=== PATIENT | male | born 1945 | race Caucasian/White ===

== ENCOUNTER 2024-06-09 13:23 | Outpatient (CLI) | payer SELFPAY ==
--- OUTSIDE RECORDS SUMMARY | 2024-06-09 13:38 | XMS_ITS | Clinical Summary ---
Author Organization [facility] Address [place], [place] [address] Care Team Providers Care Gold Plater Name Role Phone Pcp, No Primary Care Provider Unavailabl e Allergies No known active allergies Medications Medication Sig Dispensed Refills Start Date End Date Status HYDROcodone-acetam inophen, 5-325 mg, (NORCO) per tabletIndications: Acute pain of right shoulder TAKE ONE TABLET BY MOUTH EVERY 6 HOURS IF NEEDED FOR PAIN MAX. ACETAMINOPHEN DOSE: 4000MG IN 24 HOURS 20 tablet 08/03/2016 Active tamsulosin (FLOMAX) 0.4 mg capsule Take 1 Capsule (0.4 mg) by mouth once daily after a meal. 02/24/2024 Active azelastine 137 mcg/actuation (ASTELIN) nasal sprayIndications:R hinitis, unspecified type Inhale 1 [place] into affected nostril(s) two times daily. 30 mL 2 02/24/2024 Active Active Problems No known active problems Family History Medical History Relation Name Comments Hyperlipidemia Brother 3 Arthritis Father , old a ge, age 89, knee problems Other Father Alzheimer's dis ease Heart Disease Mother congestive hea rt condition, open heart surgery 2003 Hypertension Mother Diabetes Sister 2 Type 2 Diabetes Unknown Sister 3 Relation Name Status Comments Brother 1 Alive Brother 2 Alive Brother 3 Father Mother Alive Sister 1 Alive Sister 2 Sister 3 Social History Tobacco Use Types Packs/Day Years Used Date Smoking Tobacco: Former Cigarettes Q uit: 07/08/1970 Tobacco Cessation:Counseling Given: Yes Alcohol Use Standard Drinks/Week Comments Yes 0 (1 standard drink = 0.6 oz pure alcohol) occas; split 1 bottle of wine every other night. Social Connections Answer Date Recorded Frequency of Communication with Friends and Fami ly Not on file 02/24/2024 Sex and Gender Information Value Date Recorded Sex Assigned at Not on file Gender Identity Not on file Sexual Orientation Not on file Obstetrics History Last Filed Vital Signs Vital Sign Reading Time Taken Comments Blood Pressure 145/77 02/24/2024 8:03 AM CDT Pulse 80 02/24/2024 8:03 AM CDT Temperature 36.7 C (98.1 F) 04/06/2009 9:12 AM CDT Respiratory Rate - - Oxygen Saturation 96% 02/24/2024 8:03 AM CDT Inhaled Oxygen Concentration - - Weight 93.4 kg (205 lb 12.8 oz) 02/24/2024 8:03 AM CDT Height - - Body Mass Index - - Plan of Treatment Health Maintenance Due Date Last Done Comments Tdap 09/09/1954 Depression screening for age 12+ 1955 BMI (ht and wt on same day) for age 18+ 09/09/1961 Tetanus booster 1963 Zoster (shingles) series for age 50+ (1 of 2) 09/09/18 94 Pneumococcal series for age 65+ (1 of 1 - PCV) 009 RSV vaccine for adults or pr egnancy (1 - 1-dose 75+ series) 09/09/2018 COVID-19 vaccine series ( - season) 4 Influenza for age 65+ 03/08/2024 Care Teams Gold Plater Relationship Specialty Start Date End Date Pcp, No . PCP - General 07/24/16
--- NOTE | 2024-06-09 13:45 | MR_ITS ---
[address] [address] Phone:?[phone] Fax:?[phone] Referring Physician Information: Jed Garibay M.D. [address] [facility] [address] Phone:?[phone] Fax:?[phone] Patient:Lyn Weaver D.O.B:?1945 Sex:?Male Phone:?[phone] [facility] MRN:?[id number] Exam Date:?06/09/2024 EXAM: MRI OF THE LEFT SHOULDER CLINICAL INFORMATION: The patient is an 78-year-old with left shoulder pain. Evaluate for rotator cuff tear. PRIOR SURGERY: None reported. COMPARISON STUDIES: Comparison is made to prior radiographs dated 06/02/2024. TECHNICAL INFORMATION: Using a 1.5T MR scanner and a localizing shoulder surface coil: 3.0 mm?coronal obliques: PD, T2, STIR 3.0 mm?sagittal obliques: PD, T2 3.0 mm?axials: PD, T2 FINDINGS: Articular/Extraarticular collections: Effusion: Mild to moderate. Subacromial/subdeltoid: Mild to moderate fluid is seen within the subacromial/subdeltoid bursa, in keeping with changes of bursitis. Subcoracoid: Mild to moderate fluid is seen within the subcoracoid bursa, in keeping with changes of bursitis. Osseous structures: Proximal humerus: Cortical irregularity, subcortical edema, and subcortical cystic change can be seen involving the greater and lesser tuberosity regions, in keeping with the rotator cuff pathology discussed below. There is no evidence for greater or lesser tuberosity fracture. No Hill-Sachs or reverse Hill-Sachs lesion is identified. Glenoid: Degenerative changes are seen along the articular surfaces of the glenoid as discussed below. No evidence for fracture or acute bony injury is identified. Acromioclavicular joint: Mild to moderate changes of acromioclavicular joint arthrosis are present and can be seen on sagittal series 8 image 13. Coracoacromial arch: Acromion morphology: Type II. No evidence for os acromiale. Acromiohumeral space: Markedly narrowed. Coracohumeral space: Moderately narrowed. Rotator cuff and deltoid: Supraspinatus: There is broad-based, full-thickness tearing and retraction of the supraspinatus tendon fibers seen on coronal series 5 image 13 and on sagittal series 9 image 7. The area of full-thickness tearing and retraction measures 43 mm in mediolateral dimension and 32 mm in anteroposterior dimension. Atrophic changes of the supraspinatus muscle belly are seen on sagittal series 9 image 29. Infraspinatus: Full-thickness tearing can be seen involving the distal infraspinatus tendon fibers on coronal series 5 image 16 and on sagittal series 9 image 6. The tearing measures 25 mm in mediolateral dimension and 19 mm in anteroposterior dimension. Atrophic changes of the infraspinatus muscle belly are seen on sagittal series 9 image 24. Teres minor: No evidence for tendinosis, tearing, or associated muscle belly atrophy. Subscapularis: Moderate subscapularis tendinosis can be seen with intrasubstance splitting and partial-thickness tearing. No definite full-thickness tearing or retraction is seen. No atrophic changes of the subscapularis muscle belly are noted. Deltoid: No evidence for strain or tearing. Biceps tendon: The intra-articular portion of the long head of the biceps tendon is not visualized. The biceps tendon is absent from the biceps sulcus. The findings are in keeping with an intra-articular rupture of the long head of the biceps tendon with subsequent retraction. Glenohumeral joint and labrum: Articular Cartilage: Full-thickness and near full-thickness chondral loss can be seen along the articular surfaces of the glenohumeral articulation. There is mild spurring along the articular margins with areas of subcortical cystic change and subcortical edema involving the central and superior aspects of the glenoid. The findings are in keeping with osteoarthritic change. Labrum: Degeneration, blunting, and irregularity of the glenoid labrum can be seen with poorly defined tearing of the superior portion. No paralabral ganglion cyst formation is identified. Capsular Soft Tissues: No definite capsular abnormalities of the glenohumeral joint are seen. No evidence for capsular tearing is present and there are no MR signs of adhesive capsulitis. CONCLUSION: 1. Broad-based, full-thickness tearing of the supraspinatus and infraspinatus tendons with retraction and associated muscle belly atrophy. 2. Subscapularis tendinosis with intrasubstance splitting and partial-thickness tearing. 3. Intra-articular rupture of the long head of the biceps tendon with subsequent retraction. 4. Mild to moderate acromioclavicular joint arthrosis with marked narrowing of the acromiohumeral space. 5. Osteoarthritic changes of the glenohumeral articulation. 6. Glenohumeral joint effusion with subacromial/subdeltoid and subcoracoid bursitis. AEC Electronically signed on 06/09/2024 3:27:00 PM by Frankie Barton M.D.
== END 2024-06-09 13:24 | disposition home or self-care (01) ==
PROVIDERS: Visit Provider Orthopaedic Surgery Sports Medicine
DX: M25.512 Pain in left shoulder (principal); M75.102 Unspecified rotator cuff tear or rupture of left shoulder, not specified as traumatic; M19.012 Primary osteoarthritis, left shoulder; M25.412 Effusion, left shoulder; M75.52 Bursitis of left shoulder; M12.812 Other specific arthropathies, not elsewhere classified, left shoulder
CPT/HCPCS: 73221

== ENCOUNTER 2024-06-23 08:45 | Outpatient (CLI) | payer SELFPAY | END 2024-06-23 08:46 | disposition home or self-care (01) | LOC: CT 08:46 | PROVIDERS: PCP Family Medicine; Visit Provider Orthopaedic Surgery Sports Medicine | DX: M19.112 Post-traumatic osteoarthritis, left shoulder (principal); Z01.818 Encounter for other preprocedural examination | CPT/HCPCS: 73200 ==

== ENCOUNTER 2024-07-22 09:10 | Outpatient (RCR) | payer SELFPAY | END 2024-11-19 23:59 | disposition home or self-care (01) | PROVIDERS: PCP Family Medicine; Visit Provider Orthopaedic Surgery Sports Medicine | DX: M19.112 Post-traumatic osteoarthritis, left shoulder (principal); Z96.612 Presence of left artificial shoulder joint; Z51.89 Encounter for other specified aftercare | CPT/HCPCS: 97165; 97535 ==

== ENCOUNTER 2024-07-29 06:59 | Day surgery (SDC) | payer OTHER, SELFPAY ==
[2024-07-29] VITALS (20 sets, daily range): BP systolic 105–157; BP diastolic 55–78; PULSE 60–91; RESP 14–16; TEMP 36.1–36.2; O2SAT 90–98; BMI 27.5
[2024-07-29] MEDS: LACTATED RINGERS 1000 ML 1,000 ML 100 ML IV (07:15)
[2024-07-29] MEDS: ACETAMINOPHEN 500 MG TABLET 1000 MG PO (07:15)
[2024-07-29] MEDS: SODIUM CHLORIDE 0.9 % (FLUSH) 10 ML SYRINGE IVF (07:15)
[2024-07-29] MEDS: OXYCODONE (CR) 10 MG TAB.ER.12H PO (07:15)
--- NOTE | 2024-07-29 07:25 | W.PM.H&PU ---
History & Physical Update History & Physical Update H&P Reviewed and patient assessed: No changes noted
[2024-07-29] MEDS: fentaNYL 100 MCG/2 ML inj IVP (08:14)
[2024-07-29] MEDS: MIDAZOLAM HCL 1 MG/ML inj IVP (08:14)
--- NOTE | 2024-07-29 08:23 | SUR.PREOP ---
TIME?OUT:?12 PT/RN/MDA?VERIFICATION?OF?SURGICAL?SITE,?PROCEDURE,?AND?CONSENT OBTAINED?PRIOR?TO?INVASIVE?PROCEDURE.
--- NOTE | 2024-07-29 08:32 | P.ANES_ITS ---
Anesthesia Charges Start Date/Time Anesthesia Start Date: 07/29/24 Anesthesia Start Time: 08:32 Stop Date/Time Anesthesia Stop Date: 07/29/24 Anesthesia Stop Time: 10:34 Summary Extremes of Age - Over 70 or under 1: MDA Coding CPT Codes CPT Codes: ANESTH SHOULDER REPLACEMENT - 70398 ([id number]) P2 - PATIENT W/MILD SYST DISEASE, QK - RAILWAY HEAD TENDER 2-4 CNCRNT ANES PROC, QX - CLINICAL SAFETY MANAGER SVC W/ MD MED DIRECTION Additional Codes: Summary - Extremes of Age - Over 70 or under 1: MDA ([id number])
--- NOTE | 2024-07-29 08:32 | W.PM.NB ---
Nerve Block Nerve Block Time Seen by Provider: 08:15 Date Seen: 07/29/24 Type of block requested by surgeon for post-operative analgesia: supraclavicular Side: left Time out performed: Yes Verification of patient name: Yes Verification of date of : Yes Site marking: site marked Name of person performing procedure: Enoc Continuous monitoring Was continuous monitoring of O2 sat, B/P, seamless tube drawer, recorded every 15 minutes?: Yes Procedure Checklist: sterile prep, needles and gloves Ultrasound guided. Images saved: Yes Medications given in 5ml increments after negative aspiration: Ropivicaine %: 0.5 mL: 15 Needle gauge: 22 Precedex (mcg): 25 Patient tolerated procedure well: Yes Block Charges Block Charge (with Pro Fee): Brachial Plexus Use of Ultrasound Machine for Block: Yes- US Guidance/pain block
--- NOTE | 2024-07-29 08:32 | W.ANESCHARGE ---
Anesthesia Charges Start Date/Time Anesthesia Start Date: 07/29/24 Anesthesia Start Time: 08:32 Stop Date/Time Anesthesia Stop Date: 07/29/24 Anesthesia Stop Time: 10:34 Summary Extremes of Age - Over 70 or under 1: MDA Coding CPT Codes CPT Codes: ANESTH SHOULDER REPLACEMENT - 76779 ([id number]) P2 - PATIENT W/MILD SYST DISEASE, QK - CAR RUNNER 2-4 CNCRNT ANES PROC, QX - DATABASE SECURITY EXPERT SVC W/ MD MED DIRECTION Additional Codes: Summary - Extremes of Age - Over 70 or under 1: MDA ([id number])
[2024-07-29] MEDS: CEFAZOLIN 2 GM in 0.9 % SODIUM CHLORIDE Mini-bag 100 ML IVPB (08:46)
[2024-07-29] MEDS: TRANEXAMIC ACID 100 MG/ML INJ 1000 MG IV (08:52)
--- NOTE | 2024-07-29 09:04 | CRLHL7_ITS ---
For Patients: As a result of the Century Cures Act, medical imaging exams and procedure reports are released immediately into your electronic medical record. You may view this report before your referring provider. If you have questions, please contact your health care provider. INDICATION: Total shoulder replacement. TECHNIQUE: Three views of the left shoulder. FINDINGS: New reverse left total shoulder arthroplasty. Oblique lucencies project over the proximal left humeral shaft are suspicious for a nondisplaced spiral fracture. Alternatively this could be artifact due to overlying structures. Dictated by Jaden Moulton MD @ 07/29/2024 1:52:43 PM (Electronically Signed)
--- NOTE | 2024-07-29 09:10 | SUR.OPER ---
PATIENT QUESTIONS ANSWERED SATISFACTORILY PREOPERATIVELY. PATIENT BROUGHT TO OR #3 PER CART FOLLOWING THE BLOCK. Patient positioned supine on OR #3 bed for the intubation.? Perioperative team wrapped the right arm in a neutral position on the pt. abdomen with the drawsheet. Left arm elevated on an IV pole in a padded strap. Final approval of positioning by surgeon.
--- NOTE | 2024-07-29 10:15 | PM.ORPRC ---
Procedure Note Date of procedure: 07/29/24 Procedure: PREOPERATIVE DIAGNOSIS: 1. Left shoulder irrepairable rotator cuff tear 2. Left long head of the biceps tendinopathy and tenosynovitis POSTOPERATIVE DIAGNOSIS: 1. Left shoulder irrepairable rotator cuff tear 2. Left long head of the biceps tendinopathy and tenosynovitis PROCEDURE: 1. Left reverse shoulder arthroplasty. 2. Left long head of biceps open tenodesis SURGEON: Jed Garibay MD. SURGICAL SUPPLY ASSISTANT: Aroldo MORAN - Of note, a skilled assistant center director was critical for this case to aid in patient positioning, tissue retraction, limb manipulation/positioning, retraction for glenoid exposure, which was challenging, awareness and protection of critical structures, and closure. ANESTHESIA: General plus supraclavicular block EBL: 200 ml IMPLANTS: DJ0 surgical Altivate humeral stem size 12 standard shell, short with P2 porous coating vitamin E neutral poly small socket insert RSP glenoid base plate P2 porous coating with 4 perimeter locking screws 32 neutral glenosphere with retaining screw COMPLICATIONS: None evident INDICATIONS: The patient is a pleasant 78-year-old male who has experienced severe left shoulder pain and difficulty with use. Workup included imaging which revealed severe osteoarthrosis along with concern for rotator cuff quality. Physical exam was consistent with associated pain. Given the deformity, the dysfunction, and the pain, and failure of nonoperative management, recommendation was made for surgery. DESCRIPTION OF PROCEDURE: Following a thorough discussion of risks, benefits, and alternatives, consent was obtained and the left shoulder was marked. The patient was brought to the operating room and placed supine on the operating table. Induction of anesthesia was undertaken. 2 g IV Ancef and 1 g tranexamic acid was administered within 1 hr of incision preoperatively. Appropriate time-out was performed identifying proper patient, site, and procedure. The operative extremity was prepped and draped in the appropriate sterile fashion using ChloraPrep after the patient was positioned in the lazy beach chair position with head in neutral alignment and all bony prominences well padded. A longitudinal incision was made for deltopectoral approach. Deltoid was retracted laterally. Cephalic vein was identified and retracted laterally as well. Vein was spared/protected throughout the case. The clavipectoral fascia was identified and divided longitudinally staying lateral to the conjoined tendon / coracoid. The conjoined tendon was protected with a blunt Hohmann. The long head of the biceps tendon was identified and the bicipital sheath released. The upper 1/4 of the pectoralis major was also released from its insertion. The long head of the biceps was tenodesed to the pectoralis major tendon. The remaining proximal tendon tissue was excised. The rotator cuff was inspected and found to have good integrity with the subscapularis but fair integrity with a supraspinatus], and a decision for a reverse shoulder arthroplasty was confirmed. The long head of biceps, of note, was significant flattened, thickened, with abundant tenosynovitis. A subscapularis cuff of tissue was left via tenotomy for later repair with the remaining subscapularis released in a subperiosteal fashion with the Bovie. This was tagged for later repair. The 3 sisters were cauterized. The upper subscapularis was released from the capsule with a curved Barrios scissors towards the glenoid. The inferior subscapularis was divided from the capsular tissue on its caudal surface with particular caution for the axillary nerve. This was palpated anterior to the subscapularis both prior to and near the finish of the case. Inferior humeral head osteophytes were excised with caution taken throughout the case with regards to the axillary nerve. The humerus was dislocated, and humeral head cut completed. Then a protector plate was applied. We turned our attention to the glenoid. The humerus was retracted posteriorly. The subscap was protected anteriorly and the labrum/long head biceps origin was excised circumferentially. The capsule was released along the anterior and inferior portions of the glenoid cautiously with a Perez elevator being careful not to penetrate deep. The glenoid had appropriate exposure, and was prepared with the cannulated system with a target of approximately 5-10? of inferior tilt and neutral anteversion (patient had 10? of retroversion initially). Utilizing the match Point 3D printed guide, the guide pin was placed. The 3D printed jig removed and after placing the guide pin, the tap was placed followed by the glenoid reaming. The real base plate was opened, and inserted, and excellent compression/purchase was achieved with the central screw. Peripheral screws were then drilled, measured, and placed. The glenosphere was then placed consistent with the preoperative plan utilizing the above noted glenosphere. After securing the glenosphere with the locking, torque limited screw, attention was turned back to the humerus. A canal finder was placed followed by various reamers by hand. The real humeral stem was then opened and inserted with excellent metaphyseal fit and stability. Trial poly was placed and the shoulder reduced. Excellent reduction and stability achieved with appropriate tension on the conjoined tendon. At this stage, trial implants were removed, and the real implants inserted and the shoulder reduced. A 3 minute Betadine soak was performed followed by a thorough irrigation with normal saline. Subscapularis was repaired with #1 PDS to the cuff of tissue on the lesser tuberosity. Excellent reapproximation of tissue achieved. Hemostasis was found to be appropriate. The deltopectoral interval was reapproximated with 0 Vicryl, subcutaneous and subcuticular closure was then performed with number 2-0 Vicryl and 4-0 Monocryl, respectively. A skilled assistant center director was critical for this case to aid in patient positioning, tissue retraction, limb manipulation/positioning, retraction for glenoid exposure, which was challenging, awareness and protection of critical structures, and closure. PLAN: 1. Sling at all times for the operative upper extremity. 2. AROM of elbow, forearm, wrist, and digits as tolerated. 3. PT/OT consults for education and assistance. 4. Social consult for discharge planning. 5. 23 hr perioperative antibiotics. 6. Early ambulation, and SCDs for DVT prophylaxis. 7. Admit to the hospital for the above 8. Analgesics p.r.n.
--- NOTE | 2024-07-29 10:34 | P.ANES_ITS ---
Anesthesia Charges Start Date/Time Anesthesia Start Date: 07/29/24 Anesthesia Start Time: 08:32 Stop Date/Time Anesthesia Stop Date: 07/29/24 Anesthesia Stop Time: 10:34 Summary Extremes of Age - Over 70 or under 1: INSTRUMENT REPAIR TECHNICIAN Coding CPT Codes CPT Codes: ANESTH SHOULDER REPLACEMENT - 72937 ([id number]) P2 - PATIENT W/MILD SYST DISEASE, QK - ACROBATIC DANCER 2-4 CNCRNT ANES PROC, QX - INSTRUMENT REPAIR TECHNICIAN SVC W/ MD MED DIRECTION Additional Codes: Summary - Extremes of Age - Over 70 or under 1: INSTRUMENT REPAIR TECHNICIAN ([id number])
--- NOTE | 2024-07-29 10:34 | W.ANESCHARGE ---
Anesthesia Charges Start Date/Time Anesthesia Start Date: 07/29/24 Anesthesia Start Time: 08:32 Stop Date/Time Anesthesia Stop Date: 07/29/24 Anesthesia Stop Time: 10:34 Summary Extremes of Age - Over 70 or under 1: CLINICAL RESEARCHER Coding CPT Codes CPT Codes: ANESTH SHOULDER REPLACEMENT - 97509 ([id number]) P2 - PATIENT W/MILD SYST DISEASE, QK - ASSISTANT FACILITY MANAGER 2-4 CNCRNT ANES PROC, QX - CLINICAL RESEARCHER SVC W/ MD MED DIRECTION Additional Codes: Summary - Extremes of Age - Over 70 or under 1: CLINICAL RESEARCHER ([id number])
[2024-07-29] MEDS: LACTATED RINGERS 500 ML 500 ML 100 ML IV (11:30)
--- NOTE | 2024-07-29 14:41 | SUR.PHASEII ---
Patient ambulated to bathroom to void, patient stated he felt good up and walking. OT here @ 1444.
== END 2024-07-29 15:15 | disposition home or self-care (01) ==
LOC: OR 07:00
PROVIDERS: PCP Family Medicine; Visit Provider Orthopaedic Surgery Sports Medicine
PROC: 0RRJ0JZ Replacement of Right Shoulder Joint with Synthetic Substitute, Open Approach (ICD-10-PCS; CPT 23472; principal; 2024-07-29 08:45)
DX: M75.102 Unspecified rotator cuff tear or rupture of left shoulder, not specified as traumatic (principal); M75.22 Bicipital tendinitis, left shoulder; G89.18 Other acute postprocedural pain
CPT/HCPCS: 23472; 23430; 01638; 64415; 73030; 76942; 97110; 97165; 97535; 99100; A9270; C1713; C1776; J0330; J0690; J1100; J2250; J2371; J2405; J2704; J2710; J2795; J3010; J7120; L3670

== ENCOUNTER 2025-03-24 09:53 | Day surgery (SDC) | payer MEDICARE, OTHER, SELFPAY ==
[2025-03-24] VITALS (20 sets, daily range): BP systolic 97–162; BP diastolic 58–89; PULSE 61–83; RESP 14–20; TEMP 35.9–37; O2SAT 90–97; BMI 26.3
--- NOTE | 2025-03-24 10:09 | W.PM.H&PU ---
History & Physical Update History & Physical Update H&P Reviewed and patient assessed: No changes noted
[2025-03-24] MEDS: LACTATED RINGERS 1000 ML 1,000 ML 100 ML IV ×2 (10:30→12:22)
[2025-03-24] MEDS: SODIUM CHLORIDE 0.9 % (FLUSH) 10 ML SYRINGE IVF (10:30)
[2025-03-24] MEDS: ACETAMINOPHEN 500 MG TABLET 1000 MG PO ×3 (10:40→20:48)
[2025-03-24] MEDS: OXYCODONE (CR) 10 MG TAB.ER.12H PO (10:40)
[2025-03-24] MEDS: MIDAZOLAM HCL 1 MG/ML inj IVP (10:45)
--- NOTE | 2025-03-24 10:54 | CRLHL7_ITS ---
For Patients: As a result of the Cures Act, medical imaging exams and procedure reports are released immediately into your electronic medical record. You may view this report before your referring provider. If you have questions, please contact your health care provider. Indication: Hip replacement surgery Technique: AP hip fluoroscopic image. Fluoroscopy time 50.4 seconds. Findings/Impression: Hardware from a right total hip arthroplasty is in satisfactory position. Dictated by Chavo Londono MD @ 03/24/2025 2:39:13 PM (Electronically Signed)
--- NOTE | 2025-03-24 10:59 | SUR.PREOP ---
TIME?OUT:?right hip 1042 PT/RN/MDA?VERIFICATION?OF?SURGICAL?SITE,?PROCEDURE,?AND?CONSENT OBTAINED?PRIOR?TO?INVASIVE?PROCEDURE.
[2025-03-24] MEDS: TRANEXAMIC ACID 100 MG/ML INJ 1000 MG IV (11:20)
--- NOTE | 2025-03-24 11:22 | W.PM.NB ---
Nerve Block Nerve Block Time Seen by Provider: 10:45 Date Seen: 03/24/25 Type of block requested by surgeon for post-operative analgesia: BAYLEE/LFCN Side: right Time out performed: Yes Verification of patient name: Yes Verification of date of : Yes Site marking: site marked Name of person performing procedure: Enoc Continuous monitoring Was continuous monitoring of O2 sat, B/P, secured entrance monitor, recorded every 15 minutes?: Yes Procedure Checklist: sterile prep, needles and gloves Ultrasound guided. Images saved: Yes Medications given in 5ml increments after negative aspiration: Ropivicaine %: 0.5 mL: 30 Needle gauge: 20 Precedex (mcg): 25 Patient tolerated procedure well: Yes Additional comments: Needle noted below psoas tendon needle noted adjacent to LFCN Block Charges Block Charge (with Pro Fee): Other Periph Nerve Block Use of Ultrasound Machine for Block: Yes- US Guidance/pain block
--- NOTE | 2025-03-24 11:23 | P.ANES_ITS ---
Anesthesia Charges Start Date/Time Anesthesia Start Date: 03/24/25 Anesthesia Start Time: 10:59 Stop Date/Time Anesthesia Stop Date: 03/24/25 Anesthesia Stop Time: 13:34 Summary Extremes of Age - Over 70 or under 1: MDA Coding CPT Codes CPT Codes: ANESTH HIP ARTHROPLASTY - 27166 ([id number]) P2 - PATIENT W/MILD SYST DISEASE, QK - PIPE WASHER 2-4 CNCRNT ANES PROC, QX - X RAY OPERATOR SVC W/ MD MED DIRECTION Additional Codes: Summary - Extremes of Age - Over 70 or under 1: MDA ([id number])
--- NOTE | 2025-03-24 11:23 | W.ANESCHARGE ---
Anesthesia Charges Start Date/Time Anesthesia Start Date: 03/24/25 Anesthesia Start Time: 10:59 Stop Date/Time Anesthesia Stop Date: 03/24/25 Anesthesia Stop Time: 13:34 Summary Extremes of Age - Over 70 or under 1: MDA Coding CPT Codes CPT Codes: ANESTH HIP ARTHROPLASTY - 91580 ([id number]) P2 - PATIENT W/MILD SYST DISEASE, QK - EPIC PRELUDE ANALYST 2-4 CNCRNT ANES PROC, QX - LEVELER HELPER SVC W/ MD MED DIRECTION Additional Codes: Summary - Extremes of Age - Over 70 or under 1: MDA ([id number])
--- NOTE | 2025-03-24 13:32 | CRLHL7_ITS ---
For Patients: As a result of the Cures Act, medical imaging exams and procedure reports are released immediately into your electronic medical record. You may view this report before your referring provider. If you have questions, please contact your health care provider. Indication: s/p Total hip arthroplasty Technique: AP hip centered pelvis and lateral view right hip Findings/Impression: Hardware from a right total hip arthroplasty is in satisfactory position. Bone alignment is normal. No sign of acute fracture. Postop changes are within normal limits. Dictated by Chavo Londono MD @ 03/24/2025 2:40:03 PM (Electronically Signed)
--- NOTE | 2025-03-24 13:34 | P.ANES_ITS ---
Anesthesia Charges Start Date/Time Anesthesia Start Date: 03/24/25 Anesthesia Start Time: 10:59 Stop Date/Time Anesthesia Stop Date: 03/24/25 Anesthesia Stop Time: 13:34 Summary Extremes of Age - Over 70 or under 1: RETAIL SALES ASSOCIATE BILINGUAL Coding CPT Codes CPT Codes: ANESTH HIP ARTHROPLASTY - 03000 ([id number]) P3 - PATIENT W/SEVERE SYS DISEASE, QK - HEMSTITCHING MACHINE OPERATOR 2-4 CNCRNT ANES PROC, QX - RETAIL SALES ASSOCIATE BILINGUAL SVC W/ MD MED DIRECTION Additional Codes: Summary - Extremes of Age - Over 70 or under 1: RETAIL SALES ASSOCIATE BILINGUAL ([id number])
--- NOTE | 2025-03-24 13:34 | W.ANESCHARGE ---
Anesthesia Charges Start Date/Time Anesthesia Start Date: 03/24/25 Anesthesia Start Time: 10:59 Stop Date/Time Anesthesia Stop Date: 03/24/25 Anesthesia Stop Time: 13:34 Summary Extremes of Age - Over 70 or under 1: SWATCH CUTTER Coding CPT Codes CPT Codes: ANESTH HIP ARTHROPLASTY - 76449 ([id number]) P3 - PATIENT W/SEVERE SYS DISEASE, QK - SOFTWARE APPLICATIONS ARCHITECT 2-4 CNCRNT ANES PROC, QX - SWATCH CUTTER SVC W/ MD MED DIRECTION Additional Codes: Summary - Extremes of Age - Over 70 or under 1: SWATCH CUTTER ([id number])
--- NOTE | 2025-03-24 13:53 | SUR.PHASEI ---
left elbow noted in operating room to be red after procedure. Travis GRIFFITH aware, no interventions needed and will continue to monitor.
[2025-03-24] MEDS: LACTATED RINGERS 1000 ML 1,000 ML 75 ML IV (14:19)
--- NOTE | 2025-03-24 16:09 | PM.IMCN1 ---
Date of Consult Patient: [facility] Patient Consult date: 03/24/25 Requesting Physician: Orthopedics Primary Care Provider: Fitz Jordan MD Consult Narrative Reason for consult: Medical management Narrative: Pepito Weaver is a 79 year old male past medical history significant for osteoarthritis, lumbar degenerative disc disease, GERD, BPH is POD#0 s/p right total hip arthroplasty, Dr. Rodriguez. Postoperatively, patient reports pain is currently adequately managed. Denies headache or dizziness. Denies chest pain or shortness of breath. Tolerating orals without nausea vomiting. There have been no perioperative complications or nursing concerns reported. Estimated total blood loss documented as 300 ml. Updated and reviewed the active medical problems, past medical history, past surgical history, social history, allergies and medications in our electronic EMR. Review of Systems Narrative: REVIEW OF SYSTEMS: Complete review of systems performed and negative unless otherwise stated in HPI or below. 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) ?Z96.612 - Presence of left artificial shoulder joint (ICD-10) History of arthroscopy of right shoulder (08/08/16) ?Z98.890 - Other specified postprocedural states (ICD-10) History of tonsillectomy (~1950) ?Z90.89 - Acquired absence of other organs (ICD-10) Status post ORIF of fracture of ankle (1985) ?Z98.890 - Other specified postprocedural states (ICD-10) ?Z87.81 - Personal history of (healed) traumatic fracture (ICD-10) Status post ORIF of fracture of ankle (1990) ?Z98.890 - Other specified postprocedural states (ICD-10) ?Z87.81 - Personal history of (healed) traumatic fracture (ICD-10) Family History Mother Heart disease High blood pressure Sister Diabetes Brother High cholesterol Father Alzheimers disease Social History Narrative: former smoker-Quit 1971 -Malena What is your current living situation?: I presently have a place to live Problems where you live: no known problems In the past 12 months, utilities in danger of being shut off: no In past 12 months, lack of transportation kept you from medical appts, meetings, work, or getting things needed for daily living: no In the past 12 mos, have been you worried that your food would run out before you had money to buy more?: never true In the past 12 mos, the food you bought just didn't last and you didn't have money to buy more?: never true Smoking Status: Former smoker What tobacco products do you use: cigarettes Smoking quit date/years: >15 years ago Do you use any of these nicotine containing products: None Second hand tobacco smoke exposure: No How often do you have a drink containing alcohol: 4 or more times a week Alcohol type: wine How many standard drinks containing alcohol do you have on a typical day: 1 or 2 How often do you have six or more drinks on one occasion: Never AUDIT-C Alcohol total score: 4 Non-prescribed substance use: denies use Caffeine: Yes How often does anyone, including family, friends and others, physically hurt you: never How often does anyone, including family, friends and others, insult or talk down to you: rarely How often does anyone, including family, friends and others, threaten you with harm: never How often does anyone, including family, friends and others, scream or curse at you: never Health Related Social Needs: Other personal risk factors, not elsewhere classified (Z91.89) Meds Home Medications and Allergies Home Medications ?Medication ?Instructions ?Recorded ?Confirmed ?Type multivitamin 1 tab PO QAM 06/02/24 03/24/25 History Lions Made 1 tab PO QDAY 03/18/25 03/24/25 History loratadine 10 mg tablet 10 mg PO QDAY 03/18/25 03/24/25 History tamsulosin 0.4 mg capsule 0.8 mg (2 x 0.4 mg) PO QDAY #180 03/18/25 03/24/25 Rx caps acetaminophen 500 mg capsule 500 - 1,000 mg (1 - 2 x 500 mg) PO 03/24/25 Rx Q6H PRN #100 caps aspirin 81 mg tablet,delayed 81 mg PO BID #50 tabs 03/24/25 Rx release oxycodone 5 mg tablet 2.5 - 5 mg (0.5 - 1 x 5 mg) PO 03/24/25 Rx Q4-6H PRN pain #42 tabs rivaroxaban 10 mg tablet 10 mg PO DAILY #4 tabs 03/24/25 Rx sennosides 8.6 mg-docusate sodium 1 - 4 tab-cap (1 - 4 x 8.6-50 mg) 03/24/25 Rx 50 mg tablet (Senna-S) PO BID PRN constipation #60 tabs Allergies Allergy/AdvReac Type Severity Reaction Status Date / Time No Known Drug Allergies Allergy Verified 03/24/25 10:01 Exam Narrative: Exam Narrative: PHYSICAL EXAM General: Pleasant, conversant, NAD HEENT: Normocephalic, atraumatic, sclera white, EOMI, oral mucosa moist Cardiovascular: RRR, S1S2. No pitting edema Pulmonary: CTA bilaterally without rhonchi, rales, expiratory wheezes. No dyspnea Neurological: Alert, answering questions appropriately, cranial nerves intact, no focal findings Extremities: No gross joint deformity or swelling. Postoperative dressing in place, dry. Neurovascularly intact Skin: Warm, dry. Const: Vital Signs, click to edit/add: Vital Signs - 24 hr 03/24/25 10:20 03/24/25 10:45 03/24/25 10:50 Temperature 98.6 F Pulse Rate 71 64 63 Pulse Rate [Right Pulse Oximeter] Respiratory Rate 20 16 16 Blood Pressure 142/72 H 159/79 H 162/69 H Blood Pressure [Le ft Arm] Pulse Oximetry 96 97 95 Oxygen Delivery Me thod Room Air Nasal Cannula Nasal Cannula Oxygen Flow Rate 3 3 Fraction of Inspir ed Oxygen 03/24/25 10:55 03/24/25 13:30 03/24/25 13:35 Temperature 97.0 F L Pulse Rate 63 64 66 Pulse Rate [Right Pulse Oximeter] Respiratory Rate 16 14 14 Blood Pressure 133/75 108/89 97/58 L Blood Pressure [Le ft Arm] Pulse Oximetry 96 95 94 Oxygen Delivery Me thod Nasal Cannula Nasal Cannula Nasal Cannula Oxygen Flow Rate 3 2 2 Fraction of Inspir ed Oxygen 100 100 03/24/25 13:40 03/24/25 13:45 03/24/25 13:50 Temperature Pulse Rate 64 64 66 Pulse Rate [Right Pulse Oximeter] Respiratory Rate 16 16 16 Blood Pressure 108/59 L 103/59 L 103/59 L Blood Pressure [Le ft Arm] Pulse Oximetry 94 92 94 Oxygen Delivery Me thod Nasal Cannula Room Air Room Air Oxygen Flow Rate 2 Fraction of Inspir ed Oxygen 100 03/24/25 13:55 03/24/25 14:15 03/24/25 14:30 Temperature 97.3 F L 96.7 F L 97.0 F L Pulse Rate 66 Pulse Rate [Right Pulse Oximeter] 65 62 Respiratory Rate 16 14 16 Blood Pressure 108/62 Blood Pressure [Le ft Arm] 110/58 L 114/62 Pulse Oximetry 95 90 95 Oxygen Delivery Me thod Room Air Room Air Room Air Oxygen Flow Rate Fraction of Inspir ed Oxygen 03/24/25 14:45 03/24/25 15:00 Temperature 97.0 F L Pulse Rate Pulse Rate [Right Pulse Oximeter] 63 Respiratory Rate 16 Blood Pressure Blood Pressure [Le ft Arm] 126/70 121/70 Pulse Oximetry 97 Oxygen Delivery Me thod Room Air Oxygen Flow Rate Fraction of Inspir ed Oxygen Assessment and Plan Assessment and plan (1) Osteoarthritis of right hip: Problem comment: -POD#0 s/p R CLARY, Dr. Rodriguez -perioperative management including pain management and anticoagulation per Orthopedic surgery -encourage postoperative pulmonary hygiene -PT OT consults -plan to discharge home with spouse tomorrow -hgb in am. Vitally stable Status: Acute Plan May resume home medications upon discharge. Hospital medicine team will sign off. Please contact our service with any questions or concerns. Total Time Spent Total Time Spent: Today I spent 55 minutes seeing the patient, reviewing Expanse and EPIC notes/diagnostics, discussing the care plan with our care time that includes social work, PT/OT, pharmacy, RT, fpc and documenting my impressions and plan in the medical record.
[2025-03-24] MEDS: CEFAZOLIN 2 GM in 0.9 % SODIUM CHLORIDE Mini-bag 100 ML IVPB (17:39)
--- NOTE | 2025-03-24 18:50 | PC.NURSE ---
Pt is doing very well. Pleasant to care for. VSS. Pain is minimal and controlled well with tylenol and ice. Pt ambulated to the bathroom and his recliner chair, sat in chair throughout the evening, tolerating well. Voiding well Tolerating oral intake. Surgical dressing remains clean, dry and intact.
[2025-03-24] MEDS: SENNOSIDES 1 TAB TABLET 2 TAB PO (20:47)
[2025-03-25] MEDS: CEFAZOLIN 2 GM in 0.9 % SODIUM CHLORIDE Mini-bag 100 ML IVPB (01:40)
[2025-03-25] MEDS: SODIUM CHLORIDE 0.9 % (FLUSH) 10 ML SYRINGE IVF (01:40)
[2025-03-25] MEDS: ACETAMINOPHEN 500 MG TABLET 1000 MG PO (01:41)
[2025-03-25 01:48] VITALS: BP 164/84; PULSE 91; RESP 18; TEMP 36.6; O2SAT 98
--- NOTE | 2025-03-25 06:41 | PC.NURSE ---
Shift note: Patient is doing well ambulating with A1, walker and GB. Tolerated regular diet well. Pain has been minimal until this morning where patient rated pain at 9.This was just after visited BR. Oxycodone 10mg given and was effective. Vitally stable. Dressing intact, clean and dry.
[2025-03-25 06:51] LABS: Hemoglobin* 13.2 gm/dL (13.5-17.5)
[2025-03-25 07:00] VITALS: BP 139/74; PULSE 104; RESP 16; TEMP 37.2; O2SAT 95
--- NOTE | 2025-03-25 08:19 | P.ORPRC_ITS ---
Procedure Note Date of procedure: 03/24/25 Procedure: PREOPERATIVE DIAGNOSIS: 1. Right hip osteoarthritis, severe, primary POSTOPERATIVE DIAGNOSIS: 1. Right hip osteoarthritis, severe, primary PROCEDURE: 1. Right total hip arthroplasty-anterior approach 2. Intraoperative fluoroscopy and interpreted by Jed Garibay M.D. for intraoperative evaluation of femoral neck cut location, implant positioning, leg length and offset evaluation/comparison to contralateral side. Fluoroscopy time was 50.4 seconds. SURGEON: Jed Garibay MD. COMMUNICATIONS LEAD: Travis Guerra PA-C; Lucia Costa PA-C - Of note, a skilled physician assistant surgery was critical for this case to aid in patient positioning, tissue retraction, limb manipulation/positioning, and closure. ANESTHESIA: Spinal anesthetic EBL: 300ml IMPLANTS: DePuy J&J uncemented total hip [place] cup size 56, hole eliminator, +4 neutral liner Actis stem, high offset, size 6 +1.5 mm ceramic 36 mm head COMPLICATIONS: None evident INDICATIONS: The patient is a pleasant 79-year-old male who has experienced severe right hip pain and difficulty bearing weight. Workup included x-rays which revealed severe osteoarthrosis in the hip. Given the deformity, the dysfunction, and the pain, as well as the failure of nonoperative management, recommendation was made for surgery. FINDINGS: Full-thickness chondral loss diffusely throughout the femoral head and acetabulum. Osteophytes on the femoral head/neck junction and acetabular perimeter. Moderate effusion upon entering joint. DESCRIPTION OF PROCEDURE: Following a thorough discussion of risks, benefits, and alternatives consent was obtained and the right hip was marked. The patient was brought to the operating room and placed supine on the operating table. Induction of anesthesia was undertaken. 2 g IV Ancef and 1 g tranexamic acid was administered within 1 hr of incision preoperatively. Proper time-out was performed identifying proper patient, site, procedure. The operative extremity was prepped and draped in the appropriate sterile fashion using ChloraPrep after the patient was positioned on the [place] table with head in neutral alignment and all bony prominences well padded. C-arm fluoroscopic imaging was utilized to confirm proper pelvis rotation and position, and to get true AP films of both the contralateral left, and the affected right hip. This is for comparison. A longitudinal incision was made starting approximately 1 cm distal to the ASIS, and 2-3 cm lateral. The incision was extended distally aiming toward the fibular head. Sharp incision through skin and bovie cautery through the subcutaneous tissue allowed identification of the TFL fascia. This was sharply divided, and the fascia bluntly released from the muscle fibers as we dissected medial. Upon coming to the medial border, we were able to retract the TFL laterally, and penetrated the deeper fascia and identify the crossing circumflex vessels. These were ligated/cauterized. The rectus was elevated from the capsule, and retractors placed laterally and medially along the femoral neck to help with visualization of the capsule. We then performed an inverted T capsulotomy. The capsule was tagged for later repair. Retractors were placed inside the capsule. The femoral neck was visualized after releasing medially down to the lesser trochanter, along the saddle laterally, and up onto the acetabulum. The femoral neck cut was made in line with our preoperative templating. The head was removed in a single piece, and sized. We turned our attention to acetabular preparation. Initially, the labrum was resected from around the perimeter, the pulvinar was excised, allowing us to visualize the false wall. We started the reaming with a 43 mm reamer. This was medialized down to the true wall. We then enlarged our reamers sequentially up to one size less than the selected cup size. We trialed at the same size and found it to have an excellent fit. The selected cup was then opened, inserted, and impacted in line with the goal of 40? of abduction, and 20-25? of anteversion. This was confirmed on C-arm fluoroscopic imaging to be in the appropriate/goal position. Once the cup was placed we placed a hole eliminator and a liner consistent with preop planning. Attention was turned to the femoral preparation. The limb was extended, externally rotated, and adducted. The posteromedial capsule was released, as retractors were placed allowing excellent access to the proximal femur. Initially a wire bound box machine operator was followed by canal finder followed by various broaches. We broached sequentially up to the size noted above, found it to have excellent rotational control, and trialing various heads and necks, revealed that appropriate neck offset, and the above noted head size provided the greatest stability, and anabaptist of length, and offset. C-arm fluoroscopic imaging confirmed position of the stem, as well as leg lengths, which were compared with the pre procedure all fluoroscopic images. Trial implants were removed, the real femoral stem inserted, as was the appropriate head. After reducing, the leg was placed through range of motion and stability was confirmed anterior, posterior, and lateral. A 3 min Betadine soak was then performed, and thorough irrigation with normal saline followed. Closure of the capsule was performed with #1 PDS. Bleeding was confirmed to be controlled at this stage, and the TFL fascia was closed with #0 strata fix. Subcutaneous, and subcuticular closure was performed with 2-0 Stratafix and 4-0 Stratafix, respectively. Dressings were applied, and the patient was awoken from anesthesia and transferred the PACU in stable condition. A skilled physician assistant surgery was critical for this case to aid in patient positioning, tissue retraction, acetabular and proximal femoral exposure, limb manipulation/positioning, dislocation/relocation, patient safety, and closure. PLAN: 1. Weight bear as tolerated operative extremity. 2. 23 hr perioperative antibiotics. 3. Ice. 4. PT/OT consults for ambulation assistance/mobility education. 5. Social work consult for discharge planning. 6. DVT prophylaxis with at SCDs and Xarelto x5 days followed by aspirin for a total of 1 month.
[2025-03-25] MEDS: RIVAROXABAN 10 MG TABLET PO (08:26)
[2025-03-25] MEDS: SENNOSIDES 1 TAB TABLET 2 TAB PO (08:31)
--- NOTE | 2025-03-25 10:05 | PM.ORPN ---
Subjective Subjective Date Seen: 03/25/25 Principal diagnosis: Status postop day 1, right total hip arthroplasty - anterior approach Interval history: Patient reports doing okay, especially when sedentary. No acute events over night, but this morning, had increased pain 9/10 improved with oral pain medications. Pain managed with scheduled and PRN medications, ice. DVT prophylaxis: Rivaroxaban, SCDs, walking. Denies fevers, chills, aches, N/V, CP, SOB/MCCARTY, or lightheadedness. Passing flatus. Ortho Exam Narrative Exam Narrative: -Patient appears comfortable in recliner; no apparent acute distress. present. -Alert and oriented times 3 -Operative hip mildly swollen; soft tissues supple; no obvious erythema. No significant ecchymosis. Warmth appropriate -Surgical dressing clean, dry, intact; no obvious drainage, no erythematous streaking peripheral to the bandage. -Bilateral calves soft and supple; no significant swelling, edema, tenderness, erythema, discoloration, warmth, or palpable cords -2+ DP/PT pulses, intact dermatomes and myotomes distally (5/5 strength). Mild numbness about the lateral femoral cutaneous nerve distribution. -fused right ankle Const Vital Signs, click to edit/add: Vital Signs - 24 hr 03/24/25 10:20 03/24/25 10:45 03/24/25 10:50 Temperature 98.6 F Pulse Rate 71 64 63 Pulse Rate [Right Pulse Oximeter] Respiratory Rate 20 16 16 Blood Pressure 142/72 H 159/79 H 162/69 H Blood Pressure [Left Arm] Pulse Oximetry 96 97 95 Oxygen Delivery Method Room Air Nasal Cannula Nasal Cannula Oxygen Flow Rate 3 3 Fraction of Inspired Oxygen 03/24/25 10:55 03/24/25 13:30 03/24/25 13:35 Temperature 97.0 F L Pulse Rate 63 64 66 Pulse Rate [Right Pulse Oximeter] Respiratory Rate 16 14 14 Blood Pressure 133/75 108/89 97/58 L Blood Pressure [Left Arm] Pulse Oximetry 96 95 94 Oxygen Delivery Method Nasal Cannula Nasal Cannula Nasal Cannula Oxygen Flow Rate 3 2 2 Fraction of Inspired Oxygen 100 100 03/24/25 13:40 03/24/25 13:45 03/24/25 13:50 Temperature Pulse Rate 64 64 66 Pulse Rate [Right Pulse Oximeter] Respiratory Rate 16 16 16 Blood Pressure 108/59 L 103/59 L 103/59 L Blood Pressure [Left Arm] Pulse Oximetry 94 92 94 Oxygen Delivery Method Nasal Cannula Room Air Room Air Oxygen Flow Rate 2 Fraction of Inspired Oxygen 100 03/24/25 13:55 03/24/25 14:15 03/24/25 14:30 Temperature 97.3 F L 96.7 F L 97.0 F L Pulse Rate 66 Pulse Rate [Right Pulse Oximeter] 65 62 Respiratory Rate 16 14 16 Blood Pressure 108/62 Blood Pressure [Left Arm] 110/58 L 114/62 Pulse Oximetry 95 90 95 Oxygen Delivery Method Room Air Room Air Room Air Oxygen Flow Rate Fraction of Inspired Oxygen 03/24/25 14:45 03/24/25 15:00 03/24/25 15:00 Temperature 97.0 F L Pulse Rate Pulse Rate [Right Pulse Oximeter] 63 Respiratory Rate 16 Blood Pressure Blood Pressure [Left Arm] 126/70 121/70 Pulse Oximetry 97 96 Oxygen Delivery Method Room Air Room Air Oxygen Flow Rate Fraction of Inspired Oxygen 03/24/25 15:30 03/24/25 16:00 03/24/25 17:00 Temperature 97.0 F L 97.0 F L Pulse Rate Pulse Rate [Right Pulse Oximeter] 61 70 68 Respiratory Rate 16 16 16 Blood Pressure Blood Pressure [Left Arm] 123/67 122/73 131/73 Pulse Oximetry 96 95 96 Oxygen Delivery Method Room Air Room Air Room Air Oxygen Flow Rate Fraction of Inspired Oxygen 03/24/25 19:00 03/24/25 22:51 03/24/25 23:00 Temperature 97.1 F L 97.0 F L Pulse Rate Pulse Rate [Right Pulse Oximeter] 79 83 Respiratory Rate 16 18 18 Blood Pressure Blood Pressure [Left Arm] 130/62 161/76 H Pulse Oximetry 97 97 97 Oxygen Delivery Method Room Air Room Air Room Air Oxygen Flow Rate 2 Fraction of Inspired Oxygen 100 03/25/25 01:48 03/25/25 07:00 03/25/25 07:00 Temperature 98 F 99.0 F Pulse Rate Pulse Rate [Right Pulse Oximeter] 91 104 H Respiratory Rate 18 16 Blood Pressure Blood Pressure [Left Arm] 164/84 H 139/74 Pulse Oximetry 98 95 95 Oxygen Delivery Method Room Air Room Air Room Air Oxygen Flow Rate Fraction of Inspired Oxygen Assessment and Plan Assessment and plan (1) Osteoarthritis of right hip: Problem details: -POD#1 s/p R CLARY, Dr. Rodriguez -perioperative management including pain management and anticoagulation per Orthopedic surgery -encourage postoperative pulmonary hygiene -PT OT consults -plan to discharge home with spouse tomorrow -hgb in am. Vitally stable Status: Acute Plan - Complete 23 hour perioperative antibiotics. - PT/OT consult for education and assistance. - Social work consult for discharge planning - Prescribed analgesics as needed - DVT prophylaxis: Rivaroxaban for 5 days followed by 81 mg aspirin by mouth twice daily 25 days, walking, and SCDs - Anticipation is for discharge to home with today 03/25/2025 if the patient remains medically stable, pain is controlled, and they are safe with mobilization.
--- NOTE | 2025-03-25 10:47 | PC.NURSE ---
Pt doing well today. VSS. Pain controlled with PRN medications and ice. Tolerating ambulation and exercise well. Discharge instructions and pt belongings signed. Pt discharged home at 1030 via .
== END 2025-03-25 10:30 | disposition home or self-care (01) ==
LOC: OR 09:55 → MEDSURG 09:55
PROVIDERS: Physician Assistant; PCP Family Medicine; Visit Provider Orthopaedic Surgery Sports Medicine
PROC: (CPT 27130; principal; 2025-03-24 11:45)
DX: M16.11 Unilateral primary osteoarthritis, right hip (principal); G89.18 Other acute postprocedural pain; M51.369 Other intervertebral disc degeneration, lumbar region without mention of lumbar back pain or lower extremity pain; K21.9 Gastro-esophageal reflux disease without esophagitis; N40.0 Benign prostatic hyperplasia without lower urinary tract symptoms; Z79.82 Long term (current) use of aspirin
CPT/HCPCS: 27130; 01214; 36415; 64450; 73501; 73502; 76000; 76942; 85018; 86850; 86900; 86901; 97110; 97116; 97161; 97165; 97530; 97535; 99100; A9270; C1776; J0330; J0690; J1100; J2250; J2371; J2405; J2704; J2795; J3010; J3475; J3490; J7120